=== PATIENT | female | born 1970 | race American Indian/Alaskan Native ===

== ENCOUNTER 2016-07-11 08:40 | Outpatient (CLI) | payer OTHER ==
--- NOTE | 2016-07-11 14:34 | Mammography Report ---
BILATERAL MAMMOGRAM with CAD: HISTORY: Baseline screening. FINDINGS: The breast tissue is heterogeneously dense, which could obscure detection of small masses (approximately 50%-75% glandular). No mass, distortion, suspicious calcification, or skin change is seen. IMPRESSION: Negative mammogram. There is no mammographic evidence of malignancy. RECOMMENDATION: Follow-up per ACS guidelines. BI-RADS CATEGORY: 1 = Negative ACR BI-RADS MAMMOGRAPHIC CODES: 0 = Needs additional imaging evaluation; 1 = Negative; 2 = Benign; 3 = Probably benign; 4 = Suspicious; 5 = Malignant; 6 = Known biopsy-proven malignancy COMMENT: 1. Dense breast tissue, i.e., adenosis, fibrocystic changes, etc., may obscure an underlying neoplasm. 2. Approximately 10% of cancers are not detected with mammography. 3. A negative mammography report should not delay biopsy if a clinically suspicious mass is present. COMMENT: Patient follow-up letters are generated in [employer].
== END 2016-07-11 08:41 | disposition home or self-care (01) ==
LOC: MAMMO 08:40
PROVIDERS: ATTEND Family Medicine
DX: Z12.31 Encounter for screening mammogram for malignant neoplasm of breast (principal)
CPT/HCPCS: 77067; G0202

== ENCOUNTER 2017-07-12 09:40 | Outpatient (CLI) | payer OTHER ==
--- NOTE | 2017-07-13 09:38 | Ultrasound Report ---
ULTRASOUND THYROID INDICATION: Swelling, lump, mass. COMPARISON: None similar. FINDINGS: Longitudinal and transverse grayscale and color flow sonographic evaluation of the thyroid demonstrates an isthmus measuring 0.3 cm AP. Remainder gland heterogeneous with bilateral masses without significant hypervascularity. RIGHT LOBE: Grossly estimated at 4.1 x 2 x 2.4 cm and diffusely heterogeneous with mixed solid and cystic masses throughout. The largest complex such lesion resides centrally with few small echogenic, shadowing calcifications in its middle measuring up to 0.6 cm as on images 10-15, amongst others. LEFT LOBE: Grossly estimated at 5.5 x 1.4 x 2.1 cm with multiple heterogeneous masses throughout, and overall less cystic. The largest 3.2 x 1.3 x 2.3 cm predominantly solid mass noted in its mid to lower aspect with a small complex cystic component anteriorly as on images 27-32, amongst others. Another smaller 1 x 0.8 cm mass noted more medially at its junction with the isthmus, axial image 35. CONCLUSION: Diffusely heterogeneous thyroid with numerous bilateral masses noted, the largest complex on the right with some intrinsic calcifications, as detailed above. Please also correlate clinically, with laboratory values and nuclear medicine I-123 imaging, if warranted. Comparison with prior relevant imaging would also be very helpful, if available. Thank you for the opportunity to participate in this patient's care.
--- NOTE | 2017-07-13 16:24 | Mammography Report ---
BILATERAL DIGITAL SCREENING MAMMOGRAM with CAD: 07/12/17 09:40:00 CLINICAL: Routine screening. COMPARISON:07/12/17 FINDINGS: The breasts are heterogeneously dense, which may obscure small masses. No mass, architectural distortion or suspicious calcifications. IMPRESSION: No mammographic evidence of malignancy. BI-RADS CATEGORY: 1 - - Negative RECOMMENDATION: Routine mammographic screening in one year. COMMENT: Patient follow-up letters are generated by our [employer] application.
== END 2017-07-12 09:41 | disposition home or self-care (01) ==
LOC: US 09:40
PROVIDERS: ATTEND Nurse Practitioner Family
DX: Z12.31 Encounter for screening mammogram for malignant neoplasm of breast (principal); E07.89 Other specified disorders of thyroid
CPT/HCPCS: 76536; 77067

== ENCOUNTER 2020-02-27 09:53 | Outpatient (CLI) | payer BC ==
--- NOTE | 2020-02-27 14:40 | Mammography Report ---
DIGITAL SCREENING MAMMOGRAM WITH CAD, 02/27/2020 INDICATION: Routine screening mammography. TECHNIQUE: Digital bilateral 2D mammography was obtained in the craniocaudal and mediolateral obliq ue projections. This examination was interpreted with the benefit of Computer-Aided Detection analysi s. COMPARISON: 07/12/2017 FINDINGS: Breast Density: The breasts are heterogeneously dense, which may obscure small masses. There is no evidence of dominant mass, suspicious calcifications or architectural distortion in eithe r breast. No interval change. IMPRESSION: No evidence of malignancy. Follow up recommendation: Routine yearly BI-RADS Category 1: Negative. A "normal" or negative report should not discourage follow up or biopsy of a clinically significant f inding. A written summary of these findings will be mailed to the patient. The patient will be entered into a mammography reporting system which will generate a reminder letter for the patient's next appointmen t at the appropriate interval. The [employer] recommends yearly mammograms starting at age 40 and continuing as l radha as a woman is in good health. Breast MRI is recommended for women with an approximate 20-25% or greater lifetime risk of breast cancer, including women with a strong family history of breast or ova kia cancer or who have been treated for Hodgkin's disease. Signer Name: Yasmeen Aguayo MD Signed: 02/27/2020 2:35 PM Workstation Name: [id number]
== END 2020-02-27 09:54 | disposition home or self-care (01) ==
LOC: MAMMO 09:53
PROVIDERS: ATTEND Pediatrics
DX: Z12.31 Encounter for screening mammogram for malignant neoplasm of breast (principal)
CPT/HCPCS: 77067

== ENCOUNTER 2021-06-14 11:34 | Outpatient (CLI) | payer BC ==
[2021-06-14 12:48] LABS: Alanine Aminotransferase 15 units/L (7-56); Albumin 4.4 g/dL (3.9-5); BUN/Creatinine Ratio 11; Blood Urea Nitrogen 9 mg/dL (7-17); Hemolysis Index 7
== END 2021-06-14 11:35 | disposition home or self-care (01) ==
LOC: LAB 11:34
PROVIDERS: ATTEND Internal Medicine Endocrinology, Diabetes & Metabolism
DX: E05.20 Thyrotoxicosis with toxic multinodular goiter without thyrotoxic crisis or storm (principal); E04.1 Nontoxic single thyroid nodule
CPT/HCPCS: 36415; 80053; 84439; 84481

== ENCOUNTER 2021-08-05 10:13 | Outpatient (CLI) | payer BC ==
--- NOTE | 2021-08-06 13:39 | Mammography Report ---
DIGITAL SCREENING MAMMOGRAM WITH CAD, 08/05/2021 CLINICAL INFORMATION / INDICATION: Routine screening mammography. SCREENING MAMMOGRAM TECHNIQUE: Digital bilateral 2D mammography was obtained in the craniocaudal and mediolateral obliqu e projections. This examination was interpreted with the benefit of Computer-Aided Detection analysis . COMPARISON: 02/27/20, 07/12/17, 07/11/16 FINDINGS: Breast Density: The breasts are heterogeneously dense, which may obscure small masses. No dominant mass, suspicious calcifications, or architectural distortion in either breast. IMPRESSION: No mammographic evidence of malignancy. No significant change. Follow up recommendation: Routine yearly BI-RADS Category 1: NEGATIVE A "normal" or negative report should not discourage follow up or biopsy of a clinically significant f inding. A written summary of these findings will be mailed to the patient. The patient will be entered into a mammography reporting system which will generate a reminder letter for the patient's next appointmen t at the appropriate interval. The [employer] recommends yearly mammograms starting at age 40 and continuing as l radha as a woman is in good health. Breast MRI is recommended for women with an approximate 20-25% or greater lifetime risk of breast cancer, including women with a strong family history of breast or ova kia cancer or who have been treated for Hodgkin's disease. Signer Name: Juli Tinsley MD Signed: 08/06/2021 1:34 PM Workstation Name: [id number]
== END 2021-08-05 10:14 | disposition home or self-care (01) ==
LOC: MAMMO 10:13
PROVIDERS: ATTEND Pediatrics
DX: Z12.31 Encounter for screening mammogram for malignant neoplasm of breast (principal)
CPT/HCPCS: 77067

== ENCOUNTER 2021-09-29 11:49 | Outpatient (CLI) | payer BC ==
[2021-09-29 12:24] LABS: Basophils # (Auto) 0.2 K/mm3 (0.0-0.1); Basophils % (Auto) 2.9 % (0.0-1.8); Eosinophils # (Auto) 0.3 K/mm3 (0.0-0.4); Eosinophils % (Auto) 3.9 % (0.0-4.3); Hematocrit 40.8 % (30.3-42.9); Hemoglobin 13.3 gm/dl (10.1-14.3); Lymphocytes # (Auto) 2.5 K/mm3 (1.2-5.4); Lymphocytes % (Auto) 37.2 % (13.4-35.0); Mean Corpuscular HGB Conc 33 % (30-34); Mean Corpuscular Volume 89 fl (79-97); Monocytes # (Auto) 0.4 K/mm3 (0.0-0.8); Monocytes % (Auto) 6.3 % (0.0-7.3); Platelet Count 256 K/mm3 (140-440); Red Cell Distribution Width 12.9 % (13.2-15.2)
[2021-09-29 12:52] LABS: Free T4 (Free Thyroxine) 1.3 ng/dL (0.76-1.46)
[2021-09-29 14:46] LABS: Alanine Aminotransferase 12 units/L (7-56); Albumin 4.5 g/dL (3.9-5); BUN/Creatinine Ratio 14; Blood Urea Nitrogen 11 mg/dL (7-17); Calcium 9.9 mg/dL (8.4-10.2); HDL Cholesterol 52 mg/dL (40-59); Hemolysis Index 3; LDL Cholesterol,Direct 157 mg/dL (50-130)
== END 2021-09-29 11:50 | disposition home or self-care (01) ==
LOC: LAB 11:49
PROVIDERS: ATTEND Internal Medicine
DX: Z13.29 Encounter for screening for other suspected endocrine disorder (principal); Z00.00 Encounter for general adult medical examination without abnormal findings; Z13.0 Encounter for screening for diseases of the blood and blood-forming organs and certain disorders involving the immune mechanism; Z13.220 Encounter for screening for lipoid disorders
CPT/HCPCS: 36415; 80053; 80061; 84439; 84443; 85025

== ENCOUNTER 2021-12-09 11:46 | Outpatient (CLI) | payer BC ==
[2021-12-09 12:41] LABS: Alanine Aminotransferase 18 units/L (7-56); Albumin 4.3 g/dL (3.9-5); Blood Urea Nitrogen 10 mg/dL (7-17); Calcium 9.4 mg/dL (8.4-10.2); Hemolysis Index 3
[2021-12-09 12:50] LABS: BUN/Creatinine Ratio 14
== END 2021-12-09 11:47 | disposition home or self-care (01) ==
LOC: LAB 11:46
PROVIDERS: ATTEND Internal Medicine Endocrinology, Diabetes & Metabolism
DX: E05.20 Thyrotoxicosis with toxic multinodular goiter without thyrotoxic crisis or storm (principal); E04.1 Nontoxic single thyroid nodule
CPT/HCPCS: 36415; 80053; 84436; 84443; 84480